=== PATIENT | female | born 1965 | race Caucasian/White ===

== ENCOUNTER 2017-03-24 14:58 | Emergency (ER) | payer OTHER ==
[~2017-03-24] VITALS: Ht 160 cm; Wt 115.7 kg
[2017-03-24 14:58] VITALS: BP 105/82
[2017-03-24] MEDS ORDERED: NKM (15:03)
--- NOTE | 2017-03-24 15:11 | Emergency Room Report ---
History of Present Illness General Chief Complaint: Dyspnea/Respdistress Source: Patient Present Illness HPI Patient 51-year-old female brought in by EMS after increased difficulty breathing. She gradual onset of symptoms. Patient recently diagnosed with a blood clot. She reportedly was supposed to begin taking Coumadin and next week. She states she is also supposed to be placed on diuretics. Patient had prior history of asthma. Patient brought in by EMS. She did not use until oxygen at home. She denied any fever or productive cough. Patient reports having increased dyspnea with exertion. She denies any current chest pain. The patient onset of symptoms during light activity. The patient is followed by Dr. Kirby [place]. Allergies: Coded Allergies: No Known Allergies (Unverified , 03/24/17) Patient History Past Medical History: see triage record Reviewed Nursing Documentation: PMH: Agreed, PSxH: Agreed Nursing Documentation-PMH Past Medical History: No History, Except For Hx Hypertension: Yes Hx Asthma: Yes Hx Diabetes: Yes Review of Systems All Other Systems: negative except mentioned in HPI Physical Exam Vital Signs Date Time Temp Pulse Resp B/P (MAP) Pulse Ox O2 Delivery O2 Flow Rate FiO2 03/24/17 14:46 98.2 107 35 109/72 99 Room Air 2.0 Sp02 EP Interpretation: reviewed, normal General Appearance: normal inspection, alert, GCS 15, obese, Chronically Ill Head: atraumatic Eyes: bilateral eye other - disconjugate gaze ENT: normal ENT inspection, hearing grossly normal, normal voice Neck: normal inspection, full range of motion, supple, no bony tend Respiratory: normal inspection, lungs clear, normal breath sounds, no respiratory distress, no retraction, no wheezing Cardiovascular #1: regular rate, rhythm, edema Gastrointestinal: normal inspection, normal bowel sounds, non tender, soft, no guarding, no hernia Genitourinary: no CVA tenderness Musculoskeletal: normal inspection, back normal, normal range of motion Neurologic: normal inspection, alert, oriented x3, responsive, library aide III-XII nml as tested, motor strength/tone normal, speech normal Psychiatric: normal inspection, judgement/insight normal, mood/affect normal Skin: normal inspection, normal color, no rash Medical Decision Making Diagnostic Impression: Primary Impression: Pulmonary embolism Additional Impressions: CHF exacerbation Diabetes ER Course Patient presented for shortness of breath. Differential included but was not limited to anemia, pneumonia, pneumothorax, myocardial infarction, pericardial effusion, congestive heart failure, acidosis. Because of complexity of patient' s case laboratory testing and imaging studies were ordered.The patient given breathing treatment as well as IV diuretics. The patient was noted to have prior history of deep venous thrombosis. CT of the chest was ordered due to patient's risk factors for pulmonary embolism. A chest x-ray one view interpreted by me showed cardiomegaly as well as vascular congestion consistent with congestive heart failure. Patient noted have EKG interpreted by me sinus tachycardia with a rate of 103 without any acute or ST changes. Patient noted have poor R-wave progression. The patient started on IV Lasix. CT of the chest was ordered the patient's prior history of DVT. CT chest read by radiologist showed multiple bilateral pulmonary emboli with a suggestion of cardiomegaly. Patient was noted to have prior history of DVT who started on anticoagulation with Lovenox. The patient was discussed with Dr. Murrieta who agreed to accept the patient in transfer. At the time of transfer patient was medically stable and was noted to have adequate oxygen saturation. Labs Test 03/24/17 15:05 White Blood Count 13.3 K/UL (4.8-10.8) Red Blood Count 4.97 M/UL (4.20-5.40) Hemoglobin 15.4 G/DL (12.0-16.0) Hematocrit 49.1 % (37.0-47.0) Mean Corpuscular Volume 99 FL (80-99) Mean Corpuscular Hemoglobin 31.0 PG (27.0-31.0) Mean Corpuscular Hemoglobin Concent 31.4 G/DL (32.0-36.0) Red Cell Distribution Width 11.8 % (11.6-14.8) Platelet Count 219 K/UL (150-450) Mean Platelet Volume 7.6 FL (6.5-10.1) Neutrophils (%) (Auto) 64.7 % (45.0-75.0) Lymphocytes (%) (Auto) 28.0 % (20.0-45.0) Monocytes (%) (Auto) 5.7 % (1.0-10.0) Eosinophils (%) (Auto) 0.8 % (0.0-3.0) Basophils (%) (Auto) 0.9 % (0.0-2.0) Prothrombin Time 11.2 SEC (9.30-11.50) Prothromb Time International Ratio 1.1 (0.9-1.1) Activated Partial Thromboplast Time 23 SEC (23-33) Sodium Level 139 MMOL/L (136-145) Potassium Level 4.3 MMOL/L (3.5-5.1) Chloride Level 103 MMOL/L (98-107) Carbon Dioxide Level 17 MMOL/L (21-32) Anion Gap 19 (5-15) Blood Urea Nitrogen 15 mg/dL (7-18) Creatinine 0.9 MG/DL (0.55-1.30) Estimat Glomerular Filtration Rate > 60 mL/min (>60) Glucose Level 351 MG/DL (74-106) Calcium Level 9.3 MG/DL (8.5-10.1) Total Bilirubin 1.8 MG/DL (0.2-1.0) Direct Bilirubin 0.3 MG/DL (0.0-0.3) Aspartate Amino Transf (AST/SGOT) 78 U/L (15-37) Alanine Aminotransferase (ALT/SGPT) 111 U/L (12-78) Alkaline Phosphatase 83 U/L (46-116) Total Creatine Kinase 60 U/L (26-308) Creatine Kinase MB 1.3 NG/ML (0.0-3.6) Creatine Kinase MB Relative Index 2.1 Troponin I 0.004 ng/mL (0.000-0.056) Pro-B-Type Natriuretic Peptide 4698 (0-125) Total Protein 7.4 G/DL (6.4-8.2) Albumin 3.4 G/DL (3.4-5.0) Globulin 4.0 g/dL Albumin/Globulin Ratio 0.9 (1.0-2.7) EKG Diagnostic Results Rate: normal Rhythm: NSR ST Segments: no acute changes Rhythm Strip Diag. Results EP Interpretation: yes Rhythm: NSR, no PVC's, no ectopy Last Vital Signs Date Time Temp Pulse Resp B/P (MAP) Pulse Ox O2 Delivery O2 Flow Rate FiO2 03/24/17 14:46 98.2 107 35 109/72 99 Room Air 2.0 Status: unchanged Disposition: XFER SHT-TRM HOSP Condition: Serious Armand Murillo Mar 24, 2017 15:11
[2017-03-24 15:31] LABS: BASOPHILS % (AUTO) 0.9 % (0.0-2.0); EOSINOPHILS % (AUTO) 0.8 % (0.0-3.0); MEAN CORPUSCULAR HGB CONC 31.4 G/DL (32.0-36.0); MEAN CORPUSCULAR VOLUME 99 FL (80-99); MEAN PLATELET VOLUME 7.6 FL (6.5-10.1); MONOCYTES % (AUTO) 5.7 % (1.0-10.0); NEUTROPHILS % (AUTO) 64.7 % (45.0-75.0); PLATELET COUNT 219 K/UL (150-450); RED BLOOD COUNT 4.97 M/UL (4.20-5.40); RED CELL DISTRIBUTION WIDTH 11.8 % (11.6-14.8); WHITE BLOOD COUNT 13.3 K/UL (4.8-10.8)
[2017-03-24 16:01] LABS: POTASSIUM 4.3 MMOL/L (3.5-5.1); SODIUM 139 MMOL/L (136-145); TOTAL PROTEIN 7.4 G/DL (6.4-8.2)
[2017-03-24 16:05] LABS: INR 1.1 (0.9-1.1); PROTHROMBIN TIME 11.2 SEC (9.30-11.50)
[2017-03-24 16:35] LABS: ALANINE AMINOTRANSFERASE 111 U/L (12-78); ALBUMIN/GLOBULIN RATIO 0.9 (1.0-2.7); ANION GAP 19 (5-15); ASPARTATE AMINO TRANSFERASE 78 U/L (15-37); CALCIUM 9.3 MG/DL (8.5-10.1); CARBON DIOXIDE 17 MMOL/L (21-32); CHLORIDE 103 MMOL/L (98-107); CKMB 1.3 NG/ML (0.0-3.6); CREATININE 0.9 MG/DL (0.55-1.30); GLOMERULAR FILTRATION RATE > 60 mL/min (>60)
[2017-03-24 17:09] LABS: BILIRUBIN,DIRECT 0.3 MG/DL (0.0-0.3)
[2017-03-24] MEDS ORDERED: Enoxaparin 100mg Inj SUBQ ONE (17:15)
[2017-03-24 18:33] VITALS: BP 123/97
[2017-03-24 19:22] VITALS: BP 131/103
[2017-03-24 21:22] VITALS: BP 131/84
[2017-03-24 21:52] VITALS: BP 131/84
--- NOTE | 2017-03-25 09:38 | Diagnostic Imaging Report ---
Indication: Shortness of breath Comparison: None Technique: Contiguous helical CT images through the chest was performed with the use of intravenous contrast optimized for opacification of the pulmonary arterial tree. Axial, coronal, and sagittal reconstructions were reformatted using maximal intensity projections (MIPS). CT Dose: Total DLP: 703 mGycm; Total CTDI volume 12.6, 27.8 Findings: There is adequate opacification of the pulmonary arterial tree. Extensive pulmonary emboli are seen within the distal aspect of the right and left main pulmonary arteries and within pulmonary artery branches to the bilateral upper lobes, bilateral lower lobes and right middle lobe. No evidence for saddle pulmonary embolism. There is some prominence of the right ventricle when compared to left. Right heart failure should be considered. Infiltrate along the medial aspect of the right upper lobe which may be related to a pulmonary infarct. Cardiomegaly. Aorta is unremarkable. Show fatty infiltration of liver. Degenerative changes of the thoracic spine. Impression: Bilateral pulmonary emboli as described above. Focal infiltrate along the medial aspect of the right upper lobe which may be related to a pulmonary infarct. Cardiomegaly. There is some prominence of the right ventricle when compared to left. Right heart failure should be considered. Likely fatty liver. The CT scanner at [facility] is accredited by the [employer] and the scans are performed using protocols designed to limit radiation exposure to as low as reasonably achievable to attain images of sufficient resolution adequate for diagnostic evaluation.
--- NOTE | 2017-03-25 10:21 | Diagnostic Imaging Report ---
Indication: Shortness of breath Comparison: None Findings: Single view of the chest shows cardiac size at the upper limits of normal. Pulmonary vasculature is normal. There is some hazy diffuse increased density noted in the bilateral upper lobes near the apices. Underlying infiltrate cannot be excluded. Impression: Ill-defined diffuse haziness in the bilateral upper lobes near the apices. Underlying infiltrate cannot be excluded.
--- NOTE | 2017-04-03 08:29 | Cardiology Report ---
APPROVED REPORT EKG Measurement Heart [id number] Sinus tachycardia Possible Left atrial enlargement Left axis deviation Inferior infarct, age undetermined Anterolateral infarct, age undetermined Prolonged QT Abnormal ECG
== END 2017-03-24 21:52 | disposition short-term general hospital (02) ==
LOC: EDBD 14:58 → EMR 16:11
DX: I50.9 Heart failure, unspecified (principal); E11.65 Type 2 diabetes mellitus with hyperglycemia
CPT/HCPCS: 36415; 71010; 71275; 80053; 82248; 82550; 82553; 83880; 84484; 85025; 85610; 85730; 93005; 96372; 96374; 99284; J1650; J1940; Q9967

== ENCOUNTER 2018-12-28 00:12 | Emergency (ER) | payer OTHER ==
[~2018-12-28] VITALS: Ht 167.6 cm; Wt 117.9 kg
[~2018-12-28 00:12] MED LIST: NKM
[2018-12-28 00:14] VITALS: BP 121/75
--- NOTE | 2018-12-28 00:17 | NUR ---
ED Nurse Note: DURING TRIAGE PROCESS, PT STATED SHE IS ALLERGIC TO "ALL ANTIBIOTIC" BUT UNABLE TO STATE WHICH, NOTIFIED PRIMARY RN.
--- NOTE | 2018-12-28 00:20 | NUR ---
ED Nurse Note: Patient presents with complaints of abdominal and bilateral leg pain 10/10. Patient presents with bilateral leg edema reports previous diagnosis of lymphedema.
[2018-12-28] MEDS ORDERED: Isovue-300 100ml vial INJ PRN (01:15)
--- NOTE | 2018-12-28 01:20 | NUR ---
ED Nurse Note: Patient having difficulty with comfort, provided a pillow to relieve pressure from her back.
[2018-12-28 01:27] LABS: BASOPHILS % (AUTO) 0.8 % (0.0-2.0); EOSINOPHILS % (AUTO) 1.2 % (0.0-3.0); HEMATOCRIT 39.1 % (37.0-47.0); LYMPHOCYTES % (AUTO) 19.9 % (20.0-45.0); MEAN CORPUSCULAR VOLUME 95 FL (80-99); MONOCYTES % (AUTO) 7.1 % (1.0-10.0); PLATELET COUNT 243 K/UL (150-450); RED BLOOD COUNT 4.11 M/UL (4.20-5.40); RED CELL DISTRIBUTION WIDTH 11.2 % (11.6-14.8); WHITE BLOOD COUNT 14.2 K/UL (4.8-10.8)
[2018-12-28 02:14] VITALS: BP 130/82
[2018-12-28 02:15] LABS: ANION GAP 8 mmol/L (5-15); BLOOD UREA NITROGEN 22 mg/dL (7-18); CALCIUM 9.5 MG/DL (8.5-10.1); CARBON DIOXIDE 26 MMOL/L (21-32); CHLORIDE 97 MMOL/L (98-107); CREATININE 0.8 MG/DL (0.55-1.30); POTASSIUM 3.9 MMOL/L (3.5-5.1); SODIUM 131 MMOL/L (136-145)
--- NOTE | 2018-12-28 02:21 | NUR ---
ED Nurse Note: Patient request further readjustments for comfort.
[2018-12-28 02:26] LABS: ALANINE AMINOTRANSFERASE 15 U/L (12-78); ALBUMIN 3.2 G/DL (3.4-5.0); ALBUMIN/GLOBULIN RATIO 0.6 (1.0-2.7); ALKALINE PHOSPHATASE 94 U/L (46-116); ASPARTATE AMINO TRANSFERASE 14 U/L (15-37); BILIRUBIN,DIRECT 0.3 MG/DL (0.0-0.3); BILIRUBIN,TOTAL 2.7 MG/DL (0.2-1.0)
[2018-12-28 03:31] LABS: APPEARANCE,URINE CLEAR; BILIRUBIN, URINE NEGATIVE (NEGATIVE); COLOR,URINE YELLOW; GLUCOSE, URINE (UA) 4+ (NEGATIVE); KETONES,URINE 2+ (NEGATIVE); LEUKOCYTE ESTERASE ,URINE 1+ (NEGATIVE); NITRITE,URINE NEGATIVE (NEGATIVE); PH,URINE 5 (4.5-8.0); PROTEIN,URINE NEGATIVE (NEGATIVE); UROBILINOGEN,URINE NORMAL MG/DL (0.0-1.0)
[2018-12-28] MEDS ORDERED: Aspirin Baby 81mg ORAL ONE (03:45)
[2018-12-28] MEDS ORDERED: Isovue-370 150ml vial INJ PRN (03:45)
--- NOTE | 2018-12-28 03:57 | NUR ---
ED Nurse Note: PATIENT TOLERATED CHEWING ASPIRIN WELL.
[2018-12-28 04:30] VITALS: BP 132/81
--- NOTE | 2018-12-28 04:37 | NUR ---
ED Nurse Note: Patient is resting comfortably, felt the urge to urinate but was unable to produce.
--- NOTE | 2018-12-28 05:45 | NUR ---
ED Nurse Note: Patient went down for CT.
[2018-12-28 06:43] VITALS: BP 132/81
[2018-12-28] MEDS ORDERED: Insulin Human Regular 100units/ml 3ml SUBQ ONE (06:45)
--- NOTE | 2018-12-28 06:50 | Emergency Room Report ---
History of Present Illness General Chief Complaint: Abdominal Pain Source: Patient, Medical Record Present Illness HPI Patient is a 53-year-old female who presented after increased lower abdominal pain. Patient had additionally had increased lower extremity pain and swelling. She had previously had prior history of IVC filter placement. Patient reportedly had a recent CT imaging performed at [facility] for possible removal of her IVC filter. She had prior history of pulmonary embolism and had reportedly been taking Xarelto. Patient had not been having any fever. She reports having some generalized pain and swelling to her lower extremities. She reports being recently seen at [facility] and had prior work-up performed. Patient was noted to have been sleeping in her car Allergies: Coded Allergies: ACETAMINOPHEN (Verified Allergy, Unknown, 12/28/18) OXYCODONE (Verified Allergy, Unknown, 12/28/18) Patient History Past Medical History: see triage record Reviewed Nursing Documentation: PMH: Agreed; PSxH: Agreed Nursing Documentation-PM Past Medical History: No History, Except For Hx Hypertension: Yes Hx Asthma: Yes Hx Diabetes: Yes Review of Systems All Other Systems: negative except mentioned in HPI Physical Exam Vital Signs Date Time Temp Pulse Resp B/P (MAP) Pulse Ox O2 Delivery O2 Flow Rate FiO2 12/28/18 00:14 97.3 89 18 121/75 100 Room Air Sp02 EP Interpretation: reviewed, normal General Appearance: normal inspection, alert, GCS 15, obese, Chronically Ill Head: atraumatic ENT: normal ENT inspection, hearing grossly normal, normal voice Neck: normal inspection, full range of motion, supple, no bony tend Respiratory: normal inspection, lungs clear, normal breath sounds, no respiratory distress, no retraction, no wheezing Cardiovascular #1: regular rate, rhythm, edema Gastrointestinal: normal bowel sounds, soft, no guarding, no hernia, tenderness Genitourinary: no CVA tenderness Musculoskeletal: normal inspection, back normal, normal range of motion Neurologic: normal inspection, alert, responsive, speech normal Psychiatric: normal inspection, judgement/insight normal, mood/affect normal Skin: other - discoloration Medical Decision Making Diagnostic Impression: Primary Impression: Abdominal pain Additional Impressions: Leucocytosis History of pulmonary edema ER Course Patient presented for abdominal pain lower extremity pain. Differential diagnosis include was not limited to arterial insufficiency, pedal edema, pulmonary embolism among others. Because of complexity of patient's case laboratory testing and imaging studies were ordered. Patient was noted to have prior history of the pulmonary embolism. EKG interpreted by me showed normal sinus rhythm with a rate of [address] or T wave changes. Patient was noted to have some inferior Q waves. Patient was noted to have lower extremity swelling bilaterally. Laboratory testing was notable for elevated d-dimer. Patient was noted to have unremarkable anticoagulation studies which do not indicate definite use of patient's medications. Patient was given subcu insulin. She is also given aspirin. Patient was noted to be taking Xarelto for anticoagulation in the past. Patient was noted to have abdominal pain and CT imaging was ordered however cannot be performed due to table limitations. Patient was discussed with Dr. mejia at [facility] and patient will be transferred for further evaluation and treatment. Labs Test 12/28/18 00:33 12/28/18 01:32 12/28/18 03:20 White Blood Count 14.2 K/UL (4.8-10.8) Red Blood Count 4.11 M/UL (4.20-5.40) Hemoglobin 13.0 G/DL (12.0-16.0) Hematocrit 39.1 % (37.0-47.0) Mean Corpuscular Volume 95 FL (80-99) Mean Corpuscular Hemoglobin 31.6 PG (27.0-31.0) Mean Corpuscular Hemoglobin Concent 33.2 G/DL (32.0-36.0) Red Cell Distribution Width 11.2 % (11.6-14.8) Platelet Count 243 K/UL (150-450) Mean Platelet Volume 5.5 FL (6.5-10.1) Neutrophils (%) (Auto) 71.0 % (45.0-75.0) Lymphocytes (%) (Auto) 19.9 % (20.0-45.0) Monocytes (%) (Auto) 7.1 % (1.0-10.0) Eosinophils (%) (Auto) 1.2 % (0.0-3.0) Basophils (%) (Auto) 0.8 % (0.0-2.0) Troponin I 0.000 ng/mL (0.000-0.056) Prothrombin Time 11.1 SEC (9.30-11.50) Prothromb Time International Ratio 1.0 (0.9-1.1) Activated Partial Thromboplast Time 25 SEC (23-33) D-Dimer 8.23 mg/L FEU (0.00-0.49) Sodium Level 131 MMOL/L (136-145) Potassium Level 3.9 MMOL/L (3.5-5.1) Chloride Level 97 MMOL/L (98-107) Carbon Dioxide Level 26 MMOL/L (21-32) Anion Gap 8 mmol/L (5-15) Blood Urea Nitrogen 22 mg/dL (7-18) Creatinine 0.8 MG/DL (0.55-1.30) Estimat Glomerular Filtration Rate > 60 mL/min (>60) Glucose Level 367 MG/DL (74-106) Calcium Level 9.5 MG/DL (8.5-10.1) Total Bilirubin 2.7 MG/DL (0.2-1.0) Direct Bilirubin 0.3 MG/DL (0.0-0.3) Aspartate Amino Transf (AST/SGOT) 14 U/L (15-37) Alanine Aminotransferase (ALT/SGPT) 15 U/L (12-78) Alkaline Phosphatase 94 U/L (46-116) Pro-B-Type Natriuretic Peptide 32 pg/mL (0-125) Total Protein 8.5 G/DL (6.4-8.2) Albumin 3.2 G/DL (3.4-5.0) Globulin 5.3 g/dL Albumin/Globulin Ratio 0.6 (1.0-2.7) Thyroid Stimulating Hormone (TSH) 3.387 uiU/mL (0.358-3.740) Urine Color Yellow Urine Appearance Clear Urine pH 5 (4.5-8.0) Urine Specific [place] 1.020 (1.005-1.035) Urine Protein Negative (NEGATIVE) Urine Glucose (UA) 4+ (NEGATIVE) Urine Ketones 2+ (NEGATIVE) Urine Blood Negative (NEGATIVE) Urine Nitrite Negative (NEGATIVE) Urine Bilirubin Negative (NEGATIVE) Urine Urobilinogen Normal MG/DL (0.0-1.0) Urine Leukocyte Esterase 1+ (NEGATIVE) Urine RBC 0-2 /HPF (0 - 2) Urine WBC 0-2 /HPF (0 - 2) Urine Squamous Epithelial Cells Occasional /LPF Urine Bacteria Occasional /HPF (NONE) EKG Diagnostic Results Rate: normal Rhythm: NSR ST Segments: no acute changes Last Vital Signs Date Time Temp Pulse Resp B/P (MAP) Pulse Ox O2 Delivery O2 Flow Rate FiO2 12/28/18 00:51 89 18 Room Air 12/28/18 00:14 97.3 121/75 (90) 100 Status: unchanged Disposition: XFER SHT-TRM HOSP Condition: Stable Referrals: [facility] (PCP) Armand Murillo MD Dec 28, 2018 06:50
--- NOTE | 2018-12-28 07:04 | NUR ---
HAND-OFF: Report given to Liliana REDDY.
--- NOTE | 2018-12-28 07:10 | NUR ---
ED Nurse Note: recieved pt on bed, with c/o of bilateral lower extremity swelling started 3 days ago. pt denies pain. vs within normal limit. pt stated she has difficulty urinating and also stated she can stand but it hurts. pt aware of hospital transfer and verbalized understanding. will continue to monitor.
--- NOTE | 2018-12-28 07:15 | NUR ---
ED Nurse Note: pt is going to be trasnfered to [facility], [facility] is on ed, [facility] report. called [facility] and report was given to Celeste smallwood.
[2018-12-28 07:40] VITALS: BP 132/75
--- NOTE | 2018-12-28 07:40 | NUR ---
ED Nurse Note: pt tranfered to [facility] with stable vs and with all her belongings.
--- NOTE | 2018-12-30 20:36 | Cardiology Report ---
APPROVED REPORT EKG Measurement Heart [id number] Normal sinus rhythm Inferior infarct, age undetermined Cannot rule out Anterior infarct, age undetermined Abnormal ECG
== END 2018-12-28 07:40 | disposition short-term general hospital (02) ==
LOC: EDUNIT# 00:12 → EDBD 00:12 → EMR 01:46
DX: R10.30 Lower abdominal pain, unspecified (principal); D72.829 Elevated white blood cell count, unspecified; E66.9 Obesity, unspecified; E11.9 Type 2 diabetes mellitus without complications; I10 Essential (primary) hypertension; Z88.6 Allergy status to analgesic agent; Z86.711 Personal history of pulmonary embolism; Z79.01 Long term (current) use of anticoagulants; R22.43 Localized swelling, mass and lump, lower limb, bilateral
CPT/HCPCS: 36415; 80053; 81003; 82248; 82962; 83880; 84443; 84484; 85025; 85379; 85610; 85730; 93005; 96374; 99285; J1815; J1940